=== PATIENT | female | born 1960 | race Asian ===

== ENCOUNTER → 2019-04-21 | Outpatient (REF) | payer BC | LOC: M SFHCPLAZ 17:17 | PROVIDERS: ATTEND Dermatology | DX: R21 Rash and other nonspecific skin eruption (principal) ==

== ENCOUNTER → 2025-05-25 | Outpatient (CLI) | payer OTHER | LOC: M WHC 13:51 | PROVIDERS: ATTEND Orthopaedic Surgery | DX: S32.030D Wedge compression fracture of third lumbar vertebra, subsequent encounter for fracture with routine healing (principal); Z13.820 Encounter for screening for osteoporosis; W18.30XD Fall on same level, unspecified, subsequent encounter ==